=== PATIENT | female | born 1955 | race Caucasian/White ===

== ENCOUNTER 2020-09-19 00:52 | Outpatient (CLI) | payer MEDICARE, SELFPAY ==
[2020-09-19 19:14] LABS: SARS-CoV-2 RNA PCR Negative
== END 2020-09-19 00:53 | disposition home or self-care (01) ==
LOC: ANHCOVIDDT 00:52
PROVIDERS: PCP Family Medicine; Visit Provider Plastic Surgery
DX: Z01.818 Encounter for other preprocedural examination (principal); Z20.828 Contact with and (suspected) exposure to other viral communicable diseases
CPT/HCPCS: 87635; C9803; U0003

== ENCOUNTER 2020-09-23 01:06 | Day surgery (SDC) | payer MEDICARE, SELFPAY ==
[2020-09-16 15:48] VITALS: BMI 44.1
--- NOTE | 2020-09-22 09:49 | WPDANESEPPF ---
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 - Cosme Edwards MD Date/Time: 09/22/20 09:49 Surgeon: Cosme Edwards MD Pre Op Diagnosis: Neoplasm Unspecified Behavior Right Arm Patient Data Age: 65 Gender: F Height: 1.71 m Weight: 129.75 kg Allergies Allergy/AdvReac Type Severity Reaction Status Date / Time adhesive tape Allergy Unknown Rash Verified 09/16/20 15:14 doxycycline Allergy Unknown Gastrointestinal Verified 09/16/20 15:13 Upset metformin Allergy Unknown Itching/STOMACH Verified 09/16/20 15:30 CRAMPS Penicillins Allergy Unknown Rash Verified 09/16/20 15:13 Sulfa (Sulfonamide Allergy Unknown Rash Verified 09/16/20 15:13 Antibiotics) Home Medications Medication Instructions Recorded Confirmed Type albuterol sulfate [ProAir HFA] 2 puff INHALATION QID PRN 09/16/20 09/16/20 History alprazolam 1 mg PO HS 09/16/20 09/16/20 History atenolol 100 mg PO QAM 09/16/20 09/16/20 History atorvastatin 10 mg PO QPM 09/16/20 09/16/20 History calcium carbonate [Tums] 300 mg PO BID 09/16/20 09/16/20 History calcium carbonate-vitamin D3 1 tablet PO DAILY 09/16/20 09/16/20 History [Calcium 500 + D (D3)] diltiazem HCl 90 mg PO QAM 09/16/20 09/16/20 History furosemide 40 mg PO DAILY 09/16/20 09/16/20 History hydrocodone-acetaminophen 2 tablet PO BID 09/16/20 09/16/20 History lisinopril 40 mg PO QAM 09/16/20 09/16/20 History magnesium 200 mg PO DAILY 09/16/20 09/16/20 History nitroglycerin 0.4 mg SUBLINGUAL PRN PRN 09/16/20 09/16/20 History pantoprazole 40 mg PO QAM 09/16/20 09/16/20 History psyllium [Metamucil] 1 packet PO PRN PRN 09/16/20 09/16/20 History rivaroxaban [Xarelto] 20 mg PO QAM 09/16/20 09/16/20 History venlafaxine 150 mg PO HS 09/16/20 09/16/20 History Patient hx anesthesia problems: none Family hx anesthesia problems: none PMFSH Past Medical History Medical History Anxiety Atrial fibrillation CHF (congestive heart failure) Chronic GERD Chronic narcotic use CVA (cerebral vascular accident) 03/2020, l side weakness Depression Diabetes HTN (hypertension) Hypercholesterolemia Morbid obesity with BMI of 40.0-44.9, adult FILEMON on CPAP Osteoarthritis Smoker Social History Social History Smoking packs per day: 1 Smoking cigarettes per day: 20.0 Years smoked: 10 Smoking pack-years: 10.00 Smoking status: Current every day smoker Tobacco type: cigarettes Substance use: former Substance use type: marijuana Last use: MARCH 2020 Living arrangements: with family Spiritual care concerns: No Anes - Eval Final PreProcedure Day of Procedure 09/22/20 09:49 Patient weight: morbidly obese Heart: regular rate and rhythm Lungs: clear to auscultation and normal air movement Airway: Mallampati scale class II Neurological: alert and oriented Last oral intake: >/= 8 hours ASA classification: IV Emergent: no Anesthetic plan: proceed Anesthesia type and monitoring: general GIVS and LMA Informed Consent: The patient's anesthetic plan and its attendant risks and benefits were discussed with the patient/family/POA. Questions were solicited and answers provided to the satisfaction of the patient/family/POA.
[2020-09-23 06:09] VITALS: BP 151/97; PULSE 74; RESP 20; TEMP 36.3; O2SAT 97
--- NOTE | 2020-09-23 06:30 | ECG_ITS ---
Measurements Intervals [place] Rate: 86 P: [place]: 0 QRS: 31 QRSD: 95 T: 50 QT: 393 QTc: 472 Interpretive Statements ATRIAL FIBRILLATION LOW QRS VOLTAGE IN PRECORDIAL LEADS BORDERLINE ST-T WAVE ABNORMALITY- HIGH LATERAL LEADS BASELINE ARTIFACT- I, II, III, AVR, AVL, AVF, V4 ABNORMAL ECG Electronically Signed On 09-23-2020 7:51:49 [employer] by Rolf Fernandez D.O.
[2020-09-23] MEDS: LACTATED RINGERS 1,000 ML 30 ML IV CONT (06:40)
[2020-09-23 06:53] LABS: Glucose Point of Care 125 (65-105)
--- NOTE | 2020-09-23 07:04 | WPDHPUPDATE1 ---
History and Physical Update Update Date/Time: 09/23/20 07:04 History and Physical has been reviewed, including an updated exam of the patient. There are NO changes in the patient's condition. Risks, benefits, and alternatives have been discussed and questions answered. Patient agrees to proceed with procedure.
[2020-09-23 07:13] LABS: Anion Gap 8 mmol/L (8-16); Blood Urea Nitrogen 12 mg/dL (7-17); Calcium 9.6 mg/dL (8.4-10.2); Carbon Dioxide 26 mmol/L (22-30); Chloride 104 mmol/L (98-107); Estimated CRCL calculation 85 ml/min; Estimated Glomerular Filt Rate > 60; Glucose 133 mg/dL (65-105); Sodium 138 mmol/L (137-145)
[2020-09-23] MEDS: LIDO 1%/EPINEPHRINE 1:100,000 20 ML VIAL 5 ML INFILTRATE (07:47)
[2020-09-23] MEDS: BACITRACIN OINTMENT 15 GM TUBE 1 APPLIC TOPICAL (07:50)
[2020-09-23 08:24] VITALS: BP 111/82; PULSE 73; RESP 16; O2SAT 100
[2020-09-23 08:35] VITALS: BP 133/83; PULSE 80; RESP 16; O2SAT 99
[2020-09-23 08:35] LABS: Glucose Point of Care 117 (65-105)
--- NOTE | 2020-09-23 08:38 | PM.OP ---
Procedure Note - Brief Procedure Note - Brief Date of procedure: 09/23/20 Pre-op diagnosis: Neoplasm Unspecified Behavior Right Arm Post-op diagnosis: same Procedure performed: 3.5 cm excision of NOUB of right arm with complex repair 9.0 cm Anesthesia: MAC Surgeon: Cosme Edwards MD Estimated blood loss (mL): 5 Drains: No Packing: No Complications: No immediate complications Condition: stable Disposition: same day
--- NOTE | 2020-09-23 08:40 | PM.PROC ---
Procedure Note - Detailed Date of procedure: 09/23/20 Pre-op diagnosis: Neoplasm Unspecified Behavior Right Arm Post-op diagnosis: same Procedure performed: 3.5 cm excision of neoplasm of unspecified behavior of the right arm, with complex repair 9 cm Description of procedure: The large nodular site was marked on the patient's arm in preop. She was taken to the operating room placed supine on the operating table. Time-out was held and confirmed. She was given IV sedation. The extremity was prepped and draped in usual fashion. The site was marked for axis of the excision and the margin. This was infiltrated with 1% lidocaine with epinephrine. The circular ellipse was taken to include approximately 3-4 mm of normal skin around the base of this mass and the specimen was taken off deep in the subcutaneous tissue. The specimen was sent for permanent section. The wound margins were undermined extensively in all directions exceeding 3.5 cm using a 15 blade at or below the superficial fascia. This allowed approximation of both wound margins to the midline. Closure was accomplished with 2-0 Vicryl suture in fascia and dermis. Standing cones were removed both ends. The skin was closed with a running 5 0 nylon suture. A small bandage was applied and she is discharged from the operating room in stable condition. Anesthesia: MAC Surgeon: Cosme Edwards MD Estimated blood loss (mL): 5 Tourniquet time (min): 0 Drains: No Packing: No Pathology: yes Condition: stable Disposition: same day
[2020-09-23 09:05] VITALS: BP 126/74; PULSE 77; RESP 16; O2SAT 97
== END 2020-09-23 09:19 | disposition home or self-care (01) ==
PROVIDERS: Anesthesiology; PCP Family Medicine; Visit Provider Plastic Surgery
PROC: (CPT 11604; principal; 2020-09-23 07:30)
DX: C44.622 Squamous cell carcinoma of skin of right upper limb, including shoulder (principal); I11.0 Hypertensive heart disease with heart failure; I50.9 Heart failure, unspecified; I48.91 Unspecified atrial fibrillation; E78.00 Pure hypercholesterolemia, unspecified; E11.9 Type 2 diabetes mellitus without complications; F41.8 Other specified anxiety disorders; K21.9 Gastro-esophageal reflux disease without esophagitis; Z79.01 Long term (current) use of anticoagulants; Z79.891 Long term (current) use of opiate analgesic; G47.33 Obstructive sleep apnea (adult) (pediatric); E66.01 Morbid (severe) obesity due to excess calories; Z68.41 Body mass index [BMI] 40.0-44.9, adult; F17.210 Nicotine dependence, cigarettes, uncomplicated
CPT/HCPCS: 11604; 13121; 13122; 36415; 80048; 88304; 88305; 93005; A9270; J2250; J2405; J2704; J3010; J7120

== ENCOUNTER 2022-07-06 14:03 | Emergency (ER) | payer OTHER, MEDICARE, SELFPAY ==
--- NOTE | ~2022-07-06 | CT_ITS ---
EXAMINATION: CT brain wo con DATE: 07/06/2022 17:08 INDICATION: Hypertension. Cerebrovascular accident. TECHNIQUE: Computed tomography (CT) of the head was performed without intravenous contrast. The mA wa s adjusted according to patient size. Iterative reconstruction technique was employed. Exam dose: 60 5.33 mGy-cm total exam DLP. COMPARISON: None FINDINGS: Prominent bilateral carotid siphon internal carotid artery calcifications are noted. There is nonspecific diminished attenuation of the cerebral white matter, likely due to chronic small vesse l ischemic change. There is small old infarct in the posterior left parietal area. There is roughly 2 x 3 cm irregular focal ill-defined diminished attenuation involving the left front al-parietal area; differential diagnosis includes subacute cerebrovascular accident, nonspecific demy elinating process, less likely an ill-defined neoplasm. Consider further evaluation with MR imaging. Otherwise no intracranial mass lesion or hemorrhage, midline shift or mass effect is detected. No sub dural or epidural hematoma. There is moderate cerebral volume loss. There is soft tissue thickening along the medial aspect of the left frontal sinus. The included paran homer sinuses and the mastoid air cells are otherwise normally developed and aerated. No fracture or bone destruction of the cranial vault. IMPRESSION: Irregular ill defined area of diminished attenuation of the left frontal parietal area; differential diagnosis is given above. Consider MR imaging Small focal old posterior left parietal infarct Cerebral atherosclerosis and chronic small vessel ischemic changes of cerebral white matter Reviewed, dictated and finalized at [facility]. Reviewed, dictated and finalized at [facility]. IMPRESSION: Irregular ill defined area of diminished attenuation of the left f rontal parietal area; differential diagnosis is given above. Consider MR imagin g Small focal old posterior left parietal infarct Cerebral atherosclerosis and chronic small vessel ischemic changes of cerebral white matter
--- NOTE | ~2022-07-06 | XR_ITS ---
EXAMINATION: XR chest 1V portable 07/06/2022 15:15 INDICATION: Dizziness PROCEDURE: AP portable chest COMPARISON: No prior studies for comparison. FINDINGS: The lungs are clear. The cardiomediastinal silhouette is within normal limits. There are no pleural effusions. There is no pneumothorax suspected. IMPRESSION: 1: NO ACUTE CARDIOPULMONARY DISEASE. Reviewed, dictated and finalized at [facility].
[2022-07-06 14:35] VITALS: BP 140/91; PULSE 81; RESP 22; TEMP 37.1; O2SAT 97
--- NOTE | 2022-07-06 15:04 | ECG_ITS ---
Measurements Intervals [place] Rate: 79 P: [place]: 0 QRS: 15 QRSD: 85 T: 85 QT: 353 QTc: 406 Interpretive Statements ATRIAL FIBRILLATION LOW QRS VOLTAGE IN PRECORDIAL LEADS NONSPECIFIC ST & T-WAVE ABNORMALITY- INF/HIGH LAT LEADS ABNORMAL ECG COMPARED TO ECG 09/23/2020 07:29:06 NO SIGNIFICANT CHANGES Electronically Signed On 07-06-2022 20:15:33 CDT by Rolf Fernandez D.O.
[2022-07-06 15:40] LABS: Basophils Absolute Auto 0.1 K/mm3 (0.0-0.1); Basophils Percent Auto 0.7 % (0.2-1.2); Eosinophils Percent Auto 0.3 % (0-4.4); Hematocrit 49.9 % (37.0-47.0); Hemoglobin 15.3 g/dL (12.0-15.0); Immature Granulocyte Absolute 0.03 K/mm3 (0.00-0.031); Immature Granulocyte Percent A 0.3 % (0-0.5); Lymphocytes Absolute Auto 3.75 K/mm3 (0.9-3.2); Lymphocytes Percent Auto 31.5 % (18.3-44.2); Mean Corpuscular HGB Conc 30.7 g/dl (32-36); Mean Corpuscular Hemoglobin 26.3 pg (26-34); Mean Corpuscular Volume 85.9 fl (80-100); Mean Platelet Volume 10.1 fl (7.4-10.4); Monocytes Percent Auto 8.2 % (2.6-8.5); Platelet Count Result 296 k/mm3 (150-375); Red Blood Count 5.81 M/mm3 (4.2-5.4); Red Cell Distribution Width 18.6 % (11.5-14.5); White Blood Count 11.9 K/mm3 (4.5-10.0)
[2022-07-06 15:51] LABS: INR 1.1; Prothrombin Time 13.3 Seconds (11.1-14.7)
[2022-07-06 15:57] LABS: Alanine Aminotransferase 27 U/L (6-35); Albumin Level 4.8 g/dL (3.5-5.1); Alkaline Phosphatase 98 U/L (38-126); Anion Gap 15 mmol/L (8-16); Aspartate Amino Transferase 34 U/L (14-36); Bilirubin,Total 0.6 mg/dL (0.2-1.3); Blood Urea Nitrogen 18 mg/dL (7-17); Calcium 10.5 mg/dL (8.4-10.2); Carbon Dioxide 27 mmol/L (22-30); Chloride 99 mmol/L (98-107); Estimated CRCL calculation 69 ml/min; Estimated Glomerular Filt Rate > 60; Glucose 120 mg/dL (65-110); Lipase 245 U/L (23-300); Sodium 141 mmol/L (137-145)
[2022-07-06 16:09] LABS: Troponin I < 0.012 ng/mL (0.000-0.034)
--- NOTE | 2022-07-06 16:40 | ED.GENADULT ---
HPI - General Adult General Chief complaint: Unspecified Stated complaint: episode of weakness and diaphoresis Time Seen by Provider: 07/06/22 15:02 Source: RN notes reviewed History of Present Illness HPI narrative: Patient presents emergency department from [facility] for an episode of diaphoresis. The patient was in speech therapy today when she became very diaphoretic and was noted her blood pressure increased patient has a history of aphasia and is unable to give a full history she is able to answer yes or no questions and she denies having any chest pain or shortness of breath during this episode she denies any abdominal pain nausea or vomiting. Patient at this time has no complaints laying in bed patient states she never became dizzy she states she had no numbness or tingling to the extremity patient has a history of a recent left-sided CVA leading to aphasia is currently the [facility] rehab facility schedule be discharged tomorrow Related Data Home Medications Medication Instructions Recorded Confirmed albuterol sulfate 90 mcg/actuation 2 puff inhalation QID PRN SOB 09/16/20 09/16/20 aerosol inhaler (ProAir HFA) alprazolam 1 mg tablet 1 mg PO HS 09/16/20 09/23/20 atenolol 100 mg tablet 100 mg PO QAM 09/16/20 09/23/20 atorvastatin 10 mg tablet 10 mg PO QPM 09/16/20 09/23/20 calcium carbonate 300 mg (750 mg) 300 mg PO BID 09/16/20 09/23/20 chewable tablet (Tums) calcium carbonate 500 mg-vitamin 1 tablet PO DAILY 09/16/20 09/23/20 D3 3.125 mcg (125 unit) tablet diltiazem HCl 90 mg 90 mg PO QAM 09/16/20 09/23/20 capsule,extended release 12 hr furosemide 20 mg tablet 40 mg PO DAILY 09/16/20 09/23/20 hydrocodone 5 mg-acetaminophen 325 2 tablet PO BID 09/16/20 09/23/20 mg tablet lisinopril 40 mg tablet 40 mg PO QAM 09/16/20 09/23/20 magnesium 200 mg tablet 200 mg PO DAILY 09/16/20 09/23/20 nitroglycerin 0.4 mg sublingual 0.4 mg sublingual PRN PRN Chest 09/16/20 09/23/20 tablet Pain pantoprazole 40 mg tablet,delayed 40 mg PO QAM 09/16/20 09/23/20 release psyllium 1 packet PO PRN PRN Constipation 09/16/20 09/23/20 rivaroxaban 20 mg tablet (Xarelto) 20 mg PO QAM 09/16/20 09/23/20 venlafaxine 150 mg 150 mg PO HS 09/16/20 09/23/20 capsule,extended release 24 hr Allergies Allergy/AdvReac Type Severity Reaction Status Date / Time adhesive tape Allergy Severe Rash Verified 09/23/20 07:19 doxycycline Allergy Severe Gastrointestinal Verified 09/23/20 07:19 Upset metformin Allergy Severe Itching/STOMACH Verified 09/23/20 07:19 CRAMPS Penicillins Allergy Mild Rash Verified 09/23/20 07:19 Sulfa (Sulfonamide Allergy Mild Rash Verified 09/23/20 07:19 Antibiotics) Review of Systems Review of Systems: Gen.: Denies fevers or chills ENT: Denies congestion Respiratory: Denies shortness of breath or cough CV: Denies chest pain or palpitations GI: Denies abdominal pain nausea, emesis or diarrhea Musculoskeletal: Denies back pain or muscle pain Neuro: See HPI Skin: Denies rash Except as documented, all other systems reviewed and negative [facility] Past Medical History Medical History Anxiety Atrial fibrillation CHF (congestive heart failure) Chronic GERD Chronic narcotic use CVA (cerebral vascular accident) 03/2020, l side weakness CVA (cerebral vascular accident) Depression Diabetes HTN (hypertension) Hypercholesterolemia Morbid obesity with BMI of 40.0-44.9, adult FILEMON on CPAP Osteoarthritis Smoker Social History Social History Smoking packs per day: 1 Smoking cigarettes per day: 20.0 Years smoked: 10 Smoking pack-years: 10.00 Smoking status: Current every day smoker Tobacco type: cigarettes Substance use: former Substance use type: marijuana Last use: MARCH 2020 Spiritual care concerns: No Exam Narrative: APPEARANCE: No acute distress, nontoxic, resting in bed EYES: PER
[2022-07-06 17:47] LABS: Appearance Urine Clear (Clear); Bilirubin Urine Negative (Negative); Blood Urine Negative (Negative); Color Urine Yellow (Yellow); Glucose Urine UA Negative (Negative); Ketones Urine Negative (Negative); Leukocyte Esterase Ur Negative LEU/UL (Negative); Nitrate Urine Negative (Negative); Protein Urine Negative (Negative); pH Urine 5.5 (5.0-9.0)
[2022-07-06 17:50] LABS: Add Urine Microscopic? NO
[2022-07-06 18:38] LABS: Troponin I < 0.012 ng/mL (0.000-0.034)
--- NOTE | 2022-07-06 19:56 | PC.NURSE ---
Discharge vitals not taken due to monitor being end cased prior to vitals being pulled over in computer.
--- NOTE | 2022-07-06 19:57 | PC.NURSE ---
while i was taking patient out to her private vehicle, another staff member discharged her out of the monitoring system before i could crop puller vital signs.
== END 2022-07-06 18:39 ==
PROVIDERS: Emergency Provider Emergency Medicine; PCP Family Medicine
DX: R61 Generalized hyperhidrosis (principal); I11.0 Hypertensive heart disease with heart failure; I69.920 Aphasia following unspecified cerebrovascular disease; I69.954 Hemiplegia and hemiparesis following unspecified cerebrovascular disease affecting left non-dominant side; I48.91 Unspecified atrial fibrillation; I50.9 Heart failure, unspecified; E11.9 Type 2 diabetes mellitus without complications; E78.00 Pure hypercholesterolemia, unspecified; G47.33 Obstructive sleep apnea (adult) (pediatric); K21.9 Gastro-esophageal reflux disease without esophagitis; M19.90 Unspecified osteoarthritis, unspecified site; F32.A Depression, unspecified; E66.01 Morbid (severe) obesity due to excess calories; Z68.38 Body mass index [BMI] 38.0-38.9, adult; Z79.01 Long term (current) use of anticoagulants; F17.210 Nicotine dependence, cigarettes, uncomplicated; I67.2 Cerebral atherosclerosis; R94.31 Abnormal electrocardiogram [ECG] [EKG]
CPT/HCPCS: 36415; 51701; 70450; 71045; 80053; 81003; 83690; 84484; 85025; 85610; 85730; 93005; 99284